=== PATIENT | female | born 1980 | race African-American/Black ===

== ENCOUNTER 2019-12-08 17:53 | Emergency (ER) | payer OTHER ==
[~2019-12-08] VITALS: Ht 157.5 cm; Wt 104.5 kg
--- NOTE | 2019-12-08 18:56 | PHYS DOC ---
Adult General Chief Complaint Chief Complaint: SKIN RASH/ABSCESS HPI HPI Patient is a 39 year old female who presents with a November 28 patient had the first half of a dental procedure for deep scaling at [facility], [place] by Dr Pepe. I that time and started her on amoxicillin and Flagyl. Patient states that the second half of the deep scaling was done on December 03. She states she has been on amoxicillin and Flagyl this whole time and she actually has 3 doses left. Her last dose she took at 1530 today. She states that she woke up this morning and she had hives from head to toe is very itchy. She states that she took 2 Benadryl at 11:30 and she seemed to be getting better. She states she then took her medicine again at 1530 which was the amoxicillin and the Flagyl. She states then a raft up again and she ended up taking 25 mg of Benadryl at 1630. Patient states she is also been trying hydrocortisone cream and Benadryl creams. She denies any hives in her mouth, tongue swelling, lip swelling, itching of her throat or in her mouth. She denies any shortness of breath or chest pain or nausea or vomiting. She denies any dizziness or headache or numbness and tingling. Review of Systems Review of Systems Integument: Denies rash or skin lesions. Hives. [] All other systems were reviewed and found to be within normal limits, except as documented in this note. Current Medications Current Medications Current Medications Medications (Trade) Dose Ordered Sig/Joel Start Time Stop Time Status Last Admin Dose Admin Diphenhydramine HCl (Benadryl) 25 mg 1X ONCE 12/08/19 19:00 12/08/19 19:09 DC 12/08/19 19:05 25 MG Famotidine (Pepcid Vial) 20 mg 1X ONCE 12/08/19 19:00 12/08/19 19:09 DC 12/08/19 19:05 20 MG Methylprednisolone Sodium Succinate (SOLU-Medrol 125MG VIAL) 125 mg 1X ONCE 12/08/19 19:00 12/08/19 19:09 DC 12/08/19 19:05 125 MG Sodium Chloride 1,000 ml @ 1,000 mls/hr 1X ONCE 12/08/19 19:00 12/08/19 19:59 12/08/19 19:06 1,000 MLS/HR Allergies Allergies Allergies Coded Allergies Type Severity Reaction Last Updated Verified No Known Drug Allergies 12/08/19 No Physical Exam Physical Exam Constitutional: Well developed, well nourished, no acute distress, non-toxic appearance. [] HENT: Normocephalic, atraumatic, bilateral external ears normal, oropharynx moist, no oral exudates, nose normal. [] Eyes: PERRLA, EOMI, conjunctiva normal, no discharge. [] Neck: Normal range of motion, no tenderness, supple, no stridor. [] Cardiovascular:Heart rate regular rhythm, no murmur [] Lungs & Thorax: Bilateral breath sounds clear to auscultation [] Abdomen: Bowel sounds normal, soft, no tenderness, no masses, no pulsatile masses. [] Skin: Warm, dry, no erythema, no rash. Hives. [] Back: No tenderness, no CVA tenderness. [] Extremities: No tenderness, no cyanosis, no clubbing, ROM intact, no edema. [] Neurologic: Alert and oriented X 3, normal motor function, normal sensory function, no focal deficits noted. [] Psychologic: Affect normal, judgement normal, mood normal. [] Current Patient Data Vital Signs Vital Signs Date Time Temp Pulse Resp B/P (MAP) Pulse Ox O2 Delivery O2 Flow Rate FiO2 12/08/19 19:41 92 117/64 (81) 100 Room Air 12/08/19 18:44 98.1 18 98.1 EKG EKG [] Radiology/Procedures Radiology/Procedures [] Course & Med Decision Making Course & Med Decision Making Pertinent Labs and Imaging studies reviewed. (See chart for details) Alert and oriented. Speaks in full clear sentences. There are no hives or swelling to the patient's lips or mouth. No swelling to the tongue. No swelling to the uvula and no hives in the mouth or swelling. She does have some hives on her face that are very small. Her eyes are not swollen. Patient has hives all over generalized body. Lungs are clear to auscultation was. Vital signs are within normal limits. Ambulatory with a steady gait. Patient is given IV Solu-Medrol, 25 mg IV Benadryl, 20 mg Pepcid and NS bolus. Hives have gone down and patient states she is feeling much better. Patient will be sent home on Medrol Dosepak, Benadryl and Pepcid. [] Dragon Disclaimer Dragon Disclaimer This electronic medical record was generated, in whole or in part, using a voice recognition dictation system. Departure Departure Impression: Primary Impression: Allergic reaction Disposition: HOME, SELF-CARE Condition: STABLE Patient Instructions: Hives Additional Instructions: Stop taking amoxicillin and Flagyl. Call the dentist in the morning and let them know that he had an allergic reaction. They may want to switch antibiotics. Continue taking the medication as prescribed. Drink plenty of fluids. Come back if he began having facial swelling or shortness of breath. Scripts Epinephrine (EPIPEN 2-FABY) 0.3 Mg/0.3 Ml Auto.injct 1 SYR IM ONCE for ANAPHYLAXIS for 1 Day, #1 PACKET 0 Refills Prov: ANNE RODRIGUES APRN 12/08/19 Diphenhydramine Hcl (BENADRYL) 25 Mg Capsule 25 MG PO TID, #15 CAP Prov: ANNE RODRIGUES APRN 12/08/19 Famotidine (PEPCID) 20 Mg Tablet 20 MG PO BID, #30 TAB Prov: ANNE RODRIGUES APRN 12/08/19 Methylprednisolone (MEDROL) 4 Mg Tab.ds.pk 1 PKG PO UD, #1 PKG Prov: ANNE RODRIGUES APRN 12/08/19 Problem Qualifiers Primary Impression: Allergic reaction Encounter type: initial encounter Qualified Codes: T78.40XA - Allergy, unspecified, initial encounter ANNE RODRIGUES APRN Dec 08, 2019 18:56
[2019-12-08] MEDS ORDERED: diphenhydrAMINE 50 MG/ML VIAL IVP ONE (19:00)
[2019-12-08] MEDS ORDERED: methylPREDNISolone SOD SUCC PF 125 MG/2 ML VIAL. IV ONE (19:00)
[2019-12-08] MEDS ORDERED: FAMOTIDINE 20 MG/2 ML VIAL IVP ONE (19:00)
[2019-12-08] MEDS ORDERED: IV NORMAL SALINE 1000ML BAG 1,000 ML IV ONE (19:00)
[2019-12-08 19:41] VITALS: BP 117/64
[2019-12-08] MEDS ORDERED: METH4TAB2 PO (20:02)
[2019-12-08] MEDS ORDERED: FAMO-63 PO (20:02)
[2019-12-08] MEDS ORDERED: DIPH25CA58 PO (20:02)
[2019-12-08] MEDS ORDERED: EPIPEN 2-P0.3 MG/0.3 IM (20:04)
[2019-12-09] MEDS ORDERED: VALA10008 PO (04:21)
[2019-12-09] MEDS ORDERED: ESTR1TAB15 PO (04:21)
[2019-12-09] MEDS ORDERED: DAPA10TA PO (04:21)
[2019-12-09] MEDS ORDERED: METF750T39 PO (04:21)
== END 2019-12-08 20:11 | disposition home or self-care (01) ==
LOC: ER 17:53
DX: L50.0 Allergic urticaria (principal)
CPT/HCPCS: 96374; 96375; 99284; J1200; J2930; J3490; J7030

== ENCOUNTER 2019-12-09 00:42 | Inpatient (IN) | payer OTHER ==
[~2019-12-09] VITALS: Ht 160 cm; Wt 122.6 kg
[~2019-12-09 00:42] MED LIST: DIPH25CA58 PO; EPIPEN 2-P0.3 MG/0.3 IM; FAMO-63 PO; METH4TAB2 PO
[2019-12-09] MEDS ORDERED: methylPREDNISolone SOD SUCC PF 125 MG/2 ML VIAL. ONE (00:56)
[2019-12-09] MEDS ORDERED: methylPREDNISolone SOD SUCC PF 125 MG/2 ML VIAL. IV ONE ×2 (01:00→09:30)
[2019-12-09] MEDS ORDERED: IV NORMAL SALINE 1000ML BAG 1,000 ML IV SCH (01:00)
[2019-12-09] MEDS ORDERED: FAMOTIDINE 20 MG/2 ML VIAL IVP ONE (01:00)
[2019-12-09] MEDS ORDERED: diphenhydrAMINE 50 MG/ML VIAL IV ONE (01:00)
[2019-12-09 01:11] LABS: BASO % 0 % (0-3); EOS % 0 % (0-3); HEMATOCRIT 45.5 % (36.0-47.0); HEMOGLOBIN 15.4 g/dL (12.0-15.5); LYMPH # 1.3 x10^3/uL (1.0-4.8); LYMPH % 10 % (24-48); MEAN CORPUSCULAR HEMOGLOBIN 28 pg (25-35); MEAN CORPUSCULAR HGB CONC 34 g/dL (31-37); MEAN CORPUSCULAR VOLUME 84 fL (79-100); MONO # 0.1 x10^3/uL (0.0-1.1); MONO % 1 % (0-9); NEUT # 11.5 x10^3/uL (1.8-7.7); NEUT % 89 % (31-73); PLATELET COUNT 203 x10^3/uL (140-400); RED BLOOD COUNT 5.43 x10^6/uL (3.50-5.40); RED CELL DISTRIBUTION WIDTH 13.8 % (11.5-14.5); WHITE BLOOD COUNT 12.9 x10^3/uL (4.0-11.0)
[2019-12-09 01:25] LABS: ALBUMIN 3.4 g/dL (3.4-5.0); ALBUMIN/GLOBULIN RATIO 0.8 (1.0-1.7); CALCIUM 8.9 mg/dL (8.5-10.1); CREATININE 1.2 mg/dL (0.6-1.0); GFR 60.2; POTASSIUM 4.6 mmol/L (3.5-5.1); TOTAL BILIRUBIN 0.4 mg/dL (0.2-1.0); TOTAL PROTEIN 7.7 g/dL (6.4-8.2)
--- NOTE | 2019-12-09 01:40 | PHYS DOC ---
Past Medical History Past Medical History: Diabetes-Type II Past Surgical History: Hysterectomy Smoking Status: Never Smoker Alcohol Use: None Adult General Chief Complaint Chief Complaint: ALLERGIC REACTION HPI HPI Patient is a 39 year old female with history of diabetes mellitus who presents with complaining of face and trunk swelling. Patient states she had 2 episodes of dental scaling in November 28 and December 03 with 10 days of amoxicillin with the last one was taking yesterday afternoon. Patient was seen in this emergency room few hours ago with pruritic rash without facial edema or shortness of breath and felt better after treatment in ER. Patient complaining of restarting the rash with facial edema and tongue throat swelling without shortness of breath that did not get better with taking [id number] Benadryl. Patient denied chest pain, fever and chills, nausea vomiting, urinary symptoms, , history of the same problem previously. Review of Systems Review of Systems Constitutional: Denies fever or chills [] Eyes: Denies change in visual acuity, redness, or eye pain [] HENT: Denies nasal congestion or sore throat [] Respiratory: Denies cough or shortness of breath [] Cardiovascular: No additional information not addressed in HPI [] GI: Denies abdominal pain, nausea, vomiting, bloody stools or diarrhea [] : Denies dysuria or hematuria [] Musculoskeletal: Denies back pain or joint pain [] Integument: Reports rash Neurologic: Denies headache, focal weakness or sensory changes [] Endocrine: Denies polyuria or polydipsia [] All other systems were reviewed and found to be within normal limits, except as documented in this note. Current Medications Current Medications Current Medications Medications (Trade) Dose Ordered Sig/Joel Start Time Stop Time Status Last Admin Dose Admin Diphenhydramine HCl (Benadryl) 25 mg 1X ONCE 12/09/19 01:00 12/09/19 01:02 DC 12/09/19 00:59 25 MG Famotidine (Pepcid Vial) 20 mg 1X ONCE 12/09/19 01:00 12/09/19 01:02 DC 12/09/19 01:00 20 MG Methylprednisolone Sodium Succinate (SOLU-Medrol 125MG VIAL) 125 mg STK-MED ONCE 12/09/19 00:56 12/09/19 00:56 DC Sodium Chloride 1,000 ml @ 1,000 mls/hr Q1H 12/09/19 01:00 12/09/19 01:59 12/09/19 01:00 1,000 MLS/HR Allergies Allergies Allergies Coded Allergies Type Severity Reaction Last Updated Verified No Known Drug Allergies 12/08/19 No Physical Exam Physical Exam Constitutional: Well developed, well nourished, mild distress, non-toxic appearance. [] HENT: Normocephalic, atraumatic, facial rash and edema, bilateral external ears normal, oropharynx moist, mild erythema of the tongue without uvula edema,no oral exudates, nose normal. [] Eyes: PERRLA, EOMI, conjunctiva normal, no discharge. [] Neck: Normal range of motion, no tenderness, supple, no stridor. [] Cardiovascular:Heart rate regular rhythm, no murmur [] Lungs & Thorax: Bilateral breath sounds clear to auscultation [] Abdomen: Bowel sounds normal, soft, no tenderness, no masses, no pulsatile masses. [] Skin: Warm, dry, hives in face and neck and upper chest and back Back: No tenderness, no CVA tenderness. [] Extremities: No tenderness, no cyanosis, no clubbing, ROM intact, no edema. [] Neurologic: Alert and oriented X 3, normal motor function, normal sensory function, no focal deficits noted. [] Psychologic: Affect normal, judgement normal, mood normal. [] EKG EKG [] Radiology/Procedures Radiology/Procedures [] Course & Med Decision Making Course & Med Decision Making Pertinent Labs reviewed. (See chart for details) Evaluation of patient in ER showed 39-year-old male patient who presented for the second time to ER for allergic rash. Patient this time has facial edema and tongue swelling without shortness of breath. Patient had a stable vital signs. Labs showed blood sugar of more than 500 and IV insulin was given. Plan to admit patient for observation and treatment of allergic rash. Patient requiring admission for further evaluation and treatment. Discussed with Dr. Jairon jett is in agreement with admission. Discussed findings and plan with patient and family, who acknowledge understanding and agreement. Dragon Disclaimer Dragon Disclaimer This electronic medical record was generated, in whole or in part, using a voice recognition dictation system. Departure Departure Impression: Primary Impression: Allergic reaction Additional Impression: Hyperglycemia Disposition: ADMITTED INPATIENT (Admitted 0100) Admitting Physician: MEGConnie (Dr. De La O accepted admission) Condition: IMPROVED Referrals: AMANDA MORRISON MD (PCP) Problem Qualifiers Primary Impression: Allergic reaction Encounter type: initial encounter Qualified Codes: T78.40XA - Allergy, unspecified, initial encounter WYATT VASQUEZ MD Dec 09, 2019 01:40
[2019-12-09 01:54] LABS: % LYMPHS 10 % (24-48); % SEGS 90 % (35-66); PLT ESTIMATE ADEQUATE (ADEQUATE)
[2019-12-09 01:55] LABS: BASE EXCESS ABG -6 mmol/L (-3-3); HCO3 ABG 17 mmol/L (21-28); PCO2 ABG 27 mmHg (35-46); PO2 ABG 88 mmHg (75-108); SAT O2 ABG 96 % (92-99)
[2019-12-09] MEDS ORDERED: diphenhydrAMINE 50 MG/ML VIAL IVP PRN (02:00)
[2019-12-09] MEDS ORDERED: INSULIN REGULAR 100 UNIT/ML 3ML VIAL. IV ONE (02:00)
[2019-12-09] MEDS ORDERED: DEXTROSE 50% 25 GM / 50ML DISP.SYRIN. IV PRN ×3 (02:00→22:15)
[2019-12-09 02:07] LABS: FIO2 ABG 21
[2019-12-09] MEDS: IV NORMAL SALINE 1000ML BAG 1,000 ML IV SCH ×2 (02:22→12:55)
[2019-12-09 03:30] VITALS: BP 143/81
[2019-12-09] MEDS ORDERED: ESTR1TAB15 PO (04:21)
[2019-12-09] MEDS ORDERED: DAPA10TA PO (04:21)
[2019-12-09] MEDS ORDERED: VALA10008 PO (04:21)
[2019-12-09] MEDS ORDERED: METF750T39 PO (04:21)
[2019-12-09 07:00] VITALS: BP 137/82
[2019-12-09] MEDS ORDERED: EPINEPHRINE IM SCH (08:45)
[2019-12-09] MEDS ORDERED: diphenhydrAMINE 50 MG/ML VIAL IVP ONE ×2 (08:45→15:00)
[2019-12-09] MEDS ORDERED: NON FORMULARY ITEM (Dapagliflozin Propanediol (Farxiga) 10 MG) PO SCH (09:00)
[2019-12-09] MEDS ORDERED: FLU VAX QS 2019-20 (36MOS+)/PF 0.5 ML SYRINGE. VAX IM ONE (09:00)
[2019-12-09] MEDS ORDERED: DIPHENHYDRAMINE/ZINC ACETATE 2%/0.1% TOPICAL CREAM 28GM TUBE. TP PRN (09:15)
[2019-12-09] MEDS: FAMOTIDINE 20 MG TABLET. PO SCH ×2 (09:19→21:14)
--- NOTE | 2019-12-09 09:21 | PDOC1 ---
History and Physical Date of Admission Date of Admission DATE: 12/09/19 TIME: 09:17 Identification/Chief Complaint Chief Complaint rash, swelling Source Source: Chart review, Patient History of Present Illness History of Present Illness Rosalind was in the ER x2 yesterday, a 39 year old female complaining of face and trunk swelling. had recent periodonal proceedure, dental scaling, then 10 days of amoxicillin and flagyl. with the last one was taking yesterday afternoon. Patient was seen in this emergency room twice, first DC with rash, then returned when rash and swelling worsened wtih face and tongue swelling. She has no shortness of breath and felt better after treatment in ER. she has been itching her legs markedly, Patient denied chest pain, fever and chills, nausea vomiting, urinary symptoms, , history of the same problem previously. Past Medical History Cardiovascular: No pertinent hx Pulmonary: No pertinent hx GI: No pertinent hx Heme/Onc: Anemia NOS Endocrine: Diabetes Dermatology: No pertinent hx Family History Family History: Diabetes, Hypertension Social History Smoke: No ALCOHOL: rare Current Problem List Problem List Problems Medical Problems: (1) Allergic reaction Status: Acute (2) Hyperglycemia Status: Acute Current Medications Current Medications Current Medications Methylprednisolone Sodium Succinate (SOLU-Medrol 125MG VIAL) 125 mg 1X ONCE IV Last administered on 12/09/19at 00:59; Start 12/09/19 at 01:00; Stop 12/09/19 at 01:02; Status DC Diphenhydramine HCl (Benadryl) 25 mg 1X ONCE IV Last administered on 12/09/19at 00:59; Start 12/09/19 at 01:00; Stop 12/09/19 at 01:02; Status DC Famotidine (Pepcid Vial) 20 mg 1X ONCE IVP Last administered on 12/09/19at 01 :00; Start 12/09/19 at 01:00; Stop 12/09/19 at 01:02; Status DC Sodium Chloride 1,000 ml @ 1,000 mls/hr Q1H IV Last administered on 12/09/19at 01:00; Start 12/09/19 at 01:00; Stop 12/09/19 at 01:59; Status DC Methylprednisolone Sodium Succinate (SOLU-Medrol 125MG VIAL) 125 mg STK-MED ONCE .ROUTE ; Start 12/09/19 at 00:56; Stop 12/09/19 at 00:56; Status DC Insulin Human Regular (HumuLIN R VIAL) 10 unit 1X ONCE IV Last administered on 12/09/19at 02:06; Start 12/09/19 at 02:00; Stop 12/09/19 at 02:01; Status DC Sodium Chloride 1,000 ml @ 100 mls/hr Q10H IV Last administered on 12/09/19at 02:22; Start 12/09/19 at 02:00; Stop 12/10/19 at 01:59 Diphenhydramine HCl (Benadryl) 25 mg PRN Q6HRS PRN IVP ITCHING; Start 12/09/19 at 02:00; Stop 12/09/19 at 06:00; Status DC Dextrose (Dextrose 50%-Water Syringe) 12.5 gm PRN Q15MIN PRN IV SEE COMMENTS; Start 12/09/19 at 02:00 Influenza Virus Vaccine Quadrival (Afluria Quad 2019-20 (3yr Up) Syringe) 0.5 ml ONCE ONCE VAX IM ; Start 12/09/19 at 09:00; Stop 12/09/19 at 09:01; Status DC Diphenhydramine HCl (Benadryl) 50 mg PRN Q6HRS PRN PO ITCHING; Start 12/09/19 at 08:45 Diphenhydramine HCl (Benadryl) 50 mg 1X ONCE IVP ; Start 12/09/19 at 08:45; Stop 12/09/19 at 08:46; Status DC Diphenhydramine HCl (Benadryl) 25 mg TID PO ; Start 12/09/19 at 14:00 Estradiol (Estrace) 1 mg DAILY PO ; Start 12/09/19 at 10:00 Famotidine (Pepcid) 20 mg BID PO ; Start 12/09/19 at 09:00 Non-Formulary Medication (Dapagliflozin Propanediol (Farxiga)) 10 mg DAILY PO ; Start 12/09/19 at 09:00; Status UNV Non-Formulary Medication (Epinephrine (Epipen 2-[place])) 1 syr ONCE IM ; Start 12/09/19 at 08:45; Status UNV Valacyclovir HCl (Valtrex) 1,000 mg DAILY PO ; Start 12/09/19 at 10:00 Insulin Human Lispro (HumaLOG) 0-9 UNITS TIDWMEALS SQ ; Start 12/09/19 at 12:00 Dextrose (Dextrose 50%-Water Syringe) 12.5 gm PRN Q15MIN PRN IV SEE COMMENTS; Start 12/09/19 at 08:45; Status UNV Insulin Glargine (Lantus Syringe) 25 unit DAILY08 SQ ; Start 12/09/19 at 10:00 Active Scripts Active Epipen 2-[place] (Epinephrine) 0.3 Mg/0.3 Ml Auto.injct 1 Syr IM ONCE 1 Days Benadryl (Diphenhydramine Hcl) 25 Mg Capsule 25 Mg PO TID Pepcid (Famotidine) 20 Mg Tablet 20 Mg PO BID Medrol (Methylprednisolone) 4 Mg Tab.ds.pk 1 Pkg PO UD Reported Estradiol 1 Mg Tablet 1 Tab PO DAILY Valacyclovir (Valacyclovir Hcl) 1,000 Mg Tablet 1 Tab PO DAILY Metformin Hcl Er (Metformin Hcl) 750 Mg Tab.er.24h 1 Tab PO BIDWMEALS PRN 30 Days Farxiga (Dapagliflozin Propanediol) 10 Mg Tablet 10 Mg PO DAILY Allergies Allergies: Coded Allergies: amoxicillin (Verified Allergy, Severe, rash/hives/facial edema, 12/09/19) metronidazole (Verified Allergy, Severe, rash/hives/facial edema, 12/09/19) ROS General: YES: Fatigue; No: Chills, Night Sweats, Malaise, Appetite, Other PSYCHOLOGICAL ROS: No: Anxiety, Behavioral Disorder, Concentration difficultie, Decreased libido, Depression, Disorientation, Hallucinations, Hostility, Irritablity, Memory difficulties, Mood Swings, Obsessive thoughts, Physical abuse, Sexual abuse, Sleep disturbances, Suicidal ideation, Other Eyes: No Blurry vision, No Decreased vision, No Double vision, No Dry eyes, No Excessive tearing, No Eye Pain, No Itchy Eyes, No Loss of vision, No Photophobia, No Scotomata, No Uses contacts, No Uses glasses, No Other HEENT: YES: Other; No: Heacaches, Visual Changes, Hearing change, Nasal congestion, Nasal discharge, Oral lesions, Sinus pain, Sore Throat, Epistaxis, Sneezing, Snoring, Tinnitus, Vertigo, Vocal changes ALLERGY AND IMMUNOLOGY: YES: Hives, Other Hematological and Lymphatic: No: Bleeding Problems, Blood Clots, Blood Transfusions, Brusing, Night Sweats, Pallor, Swollen Lymph Nodes, Other ENDOCRINE: No: Breast Changes, Galactorrhea, Hair Pattern Changes, Hot Flashes, Malaise/lethargy, Mood Swings, Palpitations, Polydipsia/polyuria, Skin Changes, Temperature Intolerance, Unexpected Weight Changes, Other Respiratory: No: Cough, Hemoptysis, Orthopnea, Pleuritic Pain, Shortness of breath, SOB with excertion, Sputum Changes, Stridor, Tachypnea, Wheezing, Other Cardiovascular: yes Chest Pain; No Palpitations, No Orthopnea, No Paroxysmal Noc. Dyspnea, No Edema, No Lt Headedness, No Other Gastrointestinal: Yes Nausea Genitourinary: No Dysuria, No Frequency, No Incontinence, No Hematuria, No Retention, No Discharge, No Urgency, No Pain, No Flank Pain, No Other, No , No , No , No , No , No , No Musculoskeletal: No Gait Disturbance, No Joint Pain, No Joint Stiffness, No Joint Swelling, No Muscle Pain, No Muscular Weakness, No Pain In:, No Swelling In:, No Other Neurological: No Behavorial Changes, No Bowel/Bladder ControlChng, No Confusion, No Dizziness, No Gait Disturbance, No Headaches, No Impaired Coord/balance, No Memory Loss, No Numbness/Tingling, No Seizures, No Speech Problems, No Tremors, No Visual Changes, No Weakness, No Other Skin: Yes Dry Skin, Yes Rash, Yes Skin Lesion Changes, Yes Other; No Eczema, No Hair Changes, No Lumps, No Mole Changes, No Mottling, No Nail Changes, No Pruritus, No Acne Physical Exam General: Alert, Oriented X3, mild distress HEENT: Atraumatic, Mucous membr. moist/pink Lungs: Clear to auscultation, Normal air movement Heart: RRR, no murmurs Abdomen: Normal bowel sounds, Soft Extremities: No clubbing Skin: No rashes Neuro: Normal gait Vitals Vitals Vital Signs Date Time Temp Pulse Resp B/P (MAP) Pulse Ox O2 Delivery O2 Flow Rate FiO2 12/09/19 07:00 98.3 120 20 137/82 (100) 98 Nasal Cannula 98.3 Labs Labs Laboratory Tests Test 12/09/19 01:05 12/09/19 01:56 12/09/19 08:13 White Blood Count 12.9 x10^3/uL (4.0-11.0) Red Blood Count 5.43 x10^6/uL (3.50-5.40) Hemoglobin 15.4 g/dL (12.0-15.5) Hematocrit 45.5 % (36.0-47.0) Mean Corpuscular Volume 84 fL (79-100) Mean Corpuscular Hemoglobin 28 pg (25-35) Mean Corpuscular Hemoglobin Concent 34 g/dL (31-37) Red Cell Distribution Width 13.8 % (11.5-14.5) Platelet Count 203 x10^3/uL (140-400) Neutrophils (%) (Auto) 89 % (31-73) Lymphocytes (%) (Auto) 10 % (24-48) Monocytes (%) (Auto) 1 % (0-9) Eosinophils (%) (Auto) 0 % (0-3) Basophils (%) (Auto) 0 % (0-3) Neutrophils # (Auto) 11.5 x10^3/uL (1.8-7.7) Lymphocytes # (Auto) 1.3 x10^3/uL (1.0-4.8) Monocytes # (Auto) 0.1 x10^3/uL (0.0-1.1) Eosinophils # (Auto) 0.0 x10^3/uL (0.0-0.7) Basophils # (Auto) 0.0 x10^3/uL (0.0-0.2) Segmented Neutrophils % 90 % (35-66) Lymphocytes % 10 % (24-48) Platelet Estimate Adequate (ADEQUATE) Sodium Level 129 mmol/L (136-145) Potassium Level 4.6 mmol/L (3.5-5.1) Chloride Level 97 mmol/L (98-107) Carbon Dioxide Level 18 mmol/L (21-32) Anion Gap 14 (6-14) Blood Urea Nitrogen 12 mg/dL (7-20) Creatinine 1.2 mg/dL (0.6-1.0) Estimated GFR (Cockcroft-Gault) 60.2 BUN/Creatinine Ratio 10 (6-20) Glucose Level 522 mg/dL (70-99) Calcium Level 8.9 mg/dL (8.5-10.1) Total Bilirubin 0.4 mg/dL (0.2-1.0) Aspartate Amino Transf (AST/SGOT) 10 U/L (15-37) Alanine Aminotransferase (ALT/SGPT) 16 U/L (14-59) Alkaline Phosphatase 105 U/L (46-116) Total Protein 7.7 g/dL (6.4-8.2) Albumin 3.4 g/dL (3.4-5.0) Albumin/Globulin Ratio 0.8 (1.0-1.7) O2 Saturation 96 % (92-99) Arterial Blood pH 7.41 (7.35-7.45) Arterial Blood pCO2 at Patient Temp 27 mmHg (35-46) Arterial Blood pO2 at Patient Temp 88 mmHg (75-108) Arterial Blood HCO3 17 mmol/L (21-28) Arterial Blood Base Excess -6 mmol/L (-3-3) FiO2 21 Glucose (Fingerstick) 389 mg/dL (70-99) Laboratory Tests Test 12/09/19 01:05 12/09/19 01:56 12/09/19 08:13 White Blood Count 12.9 x10^3/uL (4.0-11.0) Red Blood Count 5.43 x10^6/uL (3.50-5.40) Hemoglobin 15.4 g/dL (12.0-15.5) Hematocrit 45.5 % (36.0-47.0) Mean Corpuscular Volume 84 fL (79-100) Mean Corpuscular Hemoglobin 28 pg (25-35) Mean Corpuscular Hemoglobin Concent 34 g/dL (31-37) Red Cell Distribution Width 13.8 % (11.5-14.5) Platelet Count 203 x10^3/uL (140-400) Neutrophils (%) (Auto) 89 % (31-73) Lymphocytes (%) (Auto) 10 % (24-48) Monocytes (%) (Auto) 1 % (0-9) Eosinophils (%) (Auto) 0 % (0-3) Basophils (%) (Auto) 0 % (0-3) Neutrophils # (Auto) 11.5 x10^3/uL (1.8-7.7) Lymphocytes # (Auto) 1.3 x10^3/uL (1.0-4.8) Monocytes # (Auto) 0.1 x10^3/uL (0.0-1.1) Eosinophils # (Auto) 0.0 x10^3/uL (0.0-0.7) Basophils # (Auto) 0.0 x10^3/uL (0.0-0.2) Segmented Neutrophils % 90 % (35-66) Lymphocytes % 10 % (24-48) Platelet Estimate Adequate (ADEQUATE) Sodium Level 129 mmol/L (136-145) Potassium Level 4.6 mmol/L (3.5-5.1) Chloride Level 97 mmol/L (98-107) Carbon Dioxide Level 18 mmol/L (21-32) Anion Gap 14 (6-14) Blood Urea Nitrogen 12 mg/dL (7-20) Creatinine 1.2 mg/dL (0.6-1.0) Estimated GFR (Cockcroft-Gault) 60.2 BUN/Creatinine Ratio 10 (6-20) Glucose Level 522 mg/dL (70-99) Calcium Level 8.9 mg/dL (8.5-10.1) Total Bilirubin 0.4 mg/dL (0.2-1.0) Aspartate Amino Transf (AST/SGOT) 10 U/L (15-37) Alanine Aminotransferase (ALT/SGPT) 16 U/L (14-59) Alkaline Phosphatase 105 U/L (46-116) Total Protein 7.7 g/dL (6.4-8.2) Albumin 3.4 g/dL (3.4-5.0) Albumin/Globulin Ratio 0.8 (1.0-1.7) O2 Saturation 96 % (92-99) Arterial Blood pH 7.41 (7.35-7.45) Arterial Blood pCO2 at Patient Temp 27 mmHg (35-46) Arterial Blood pO2 at Patient Temp 88 mmHg (75-108) Arterial Blood HCO3 17 mmol/L (21-28) Arterial Blood Base Excess -6 mmol/L (-3-3) FiO2 21 Glucose (Fingerstick) 389 mg/dL (70-99) VTE Prophylaxis Ordered VTE Prophylaxis Devices: No VTE Pharmacological Prophylaxi: Yes Assessment/Plan Assessment/Plan anaphalactic reaction, admit to tele SIRS from reaction obese, BMI 47 Dm2, blood sugar marked spike from allergy treatemtn admit LIEN FLOYD MD Dec 09, 2019 09:21
[2019-12-09] MEDS: diphenhydrAMINE HCL 25 MG CAPSULE PO PRN (09:24)
[2019-12-09] MEDS: valACYclovir 500 MG TABLET. PO SCH (09:33)
[2019-12-09] MEDS: INSULIN GLARGINE SYRINGE. SQ SCH (09:38)
[2019-12-09 11:00] VITALS: BP 128/77
[2019-12-09] MEDS: ESTRADIOL 1 MG TABLET. PO SCH (11:44)
--- NOTE | 2019-12-09 11:56 | NUR ---
SS following for discharge planning. SS reviewed pt chart. Pt is from home and is currently on room air. SS will continue to follow for discharge planning.
[2019-12-09] MEDS: INSULIN LISPRO 300 UNITS/3 ML VIAL. SQ SCH ×2 (13:03→22:57)
[2019-12-09] MEDS: diphenhydrAMINE HCL 25 MG CAPSULE PO SCH ×2 (13:44→21:14)
[2019-12-09 15:00] VITALS: BP 136/81
[2019-12-09] MEDS ORDERED: INSULIN GLARGINE SYRINGE. SQ ONE (18:00)
--- NOTE | 2019-12-09 19:34 | NUR ---
FACULTY CO-SIGN I have reviewed the documentation by licensed nursing assistant: [employer] student.
[2019-12-09 19:50] VITALS: BP 140/79
--- NOTE | 2019-12-09 21:24 | NUR ---
Patient is tearful, stated she "is itching and the PO Benedryl is not helping" her. BP 140/79 P107, R 20, Also Blood Sugar is 376. Patient does have hives/ rash appearance on face, arms, hands & torso. RN paged Dr Rivas neon pumper for [facility]
[2019-12-09] MEDS: diphenhydrAMINE 50 MG/ML VIAL IVP PRN (22:48)
[2019-12-09 23:10] VITALS: BP 135/73
[2019-12-10 02:30] VITALS: BP 137/76
[2019-12-10] MEDS: IV NORMAL SALINE 1000ML BAG 1,000 ML IV SCH (05:18)
[2019-12-10] MEDS: diphenhydrAMINE HCL 25 MG CAPSULE PO PRN (05:30)
[2019-12-10] MEDS ORDERED: predniSONE 10 MG TABLET PO ONE (05:30)
[2019-12-10 07:00] VITALS: BP 96/52
[2019-12-10] MEDS ORDERED: INSULIN LISPRO 300 UNITS/3 ML VIAL. SQ SCH (08:00)
[2019-12-10] MEDS: diphenhydrAMINE HCL 25 MG CAPSULE PO SCH ×2 (09:00→14:39)
[2019-12-10] MEDS: diphenhydrAMINE 50 MG/ML VIAL IVP PRN (09:12)
[2019-12-10] MEDS: valACYclovir 500 MG TABLET. PO SCH (09:12)
[2019-12-10] MEDS: ESTRADIOL 1 MG TABLET. PO SCH (09:13)
[2019-12-10] MEDS: FAMOTIDINE 20 MG TABLET. PO SCH (09:13)
[2019-12-10] MEDS ORDERED: ONDANSETRON PF 4 MG/2 ML VIAL. IVP PRN (09:15)
[2019-12-10] MEDS: INSULIN LISPRO 300 UNITS/3 ML VIAL. SQ SCH ×2 (09:22→12:28)
[2019-12-10] MEDS: INSULIN GLARGINE SYRINGE. SQ SCH (09:23)
--- NOTE | 2019-12-10 09:56 | PDOC ---
Infectious Disease Note Vital Sign Vital Signs Vital Signs Date Time Temp Pulse Resp B/P (MAP) Pulse Ox O2 Delivery O2 Flow Rate FiO2 12/10/19 07:00 98.0 107 18 96/52 (67) 96 Room Air 98.0 Labs Lab Laboratory Tests Test 12/09/19 12:19 12/09/19 17:18 12/09/19 21:11 12/10/19 08:19 Glucose (Fingerstick) 326 mg/dL (70-99) 394 mg/dL (70-99) 376 mg/dL (70-99) 297 mg/dL (70-99) Objective Assessment pt seen, consult dictated Plan Plan of Care / LINDSAY SLAUGHTER MD Dec 10, 2019 09:56
[2019-12-10 10:05] LABS: BASO % 0 % (0-3); EOS % 0 % (0-3); HEMATOCRIT 43.2 % (36.0-47.0); HEMOGLOBIN 14.7 g/dL (12.0-15.5); LYMPH # 1.1 x10^3/uL (1.0-4.8); LYMPH % 8 % (24-48); MEAN CORPUSCULAR HEMOGLOBIN 29 pg (25-35); MEAN CORPUSCULAR HGB CONC 34 g/dL (31-37); MEAN CORPUSCULAR VOLUME 84 fL (79-100); MONO # 0.3 x10^3/uL (0.0-1.1); MONO % 2 % (0-9); NEUT % 89 % (31-73); PLATELET COUNT 197 x10^3/uL (140-400); RED BLOOD COUNT 5.15 x10^6/uL (3.50-5.40); RED CELL DISTRIBUTION WIDTH 13.8 % (11.5-14.5); WHITE BLOOD COUNT 13.4 x10^3/uL (4.0-11.0)
[2019-12-10 10:27] LABS: ALBUMIN 2.9 g/dL (3.4-5.0); C-REACTIVE PROTEIN 19.2 mg/L (0-3.3); CALCIUM 7.5 mg/dL (8.5-10.1); CREATININE 0.7 mg/dL (0.6-1.0); GFR 112.1; TOTAL BILIRUBIN 0.8 mg/dL (0.2-1.0); TOTAL PROTEIN 5.9 g/dL (6.4-8.2)
[2019-12-10 11:00] VITALS: BP 121/61
--- NOTE | 2019-12-10 12:40 | PDOC3 ---
Discharge Summary Visit Information Date of Admission: Dec 09, 2019 Date of Discharge: Dec 10, 2019 Final Diagnosis anaphalactic reaction, admitted to tele SIRS from reaction obese, BMI 47 Dm2, blood sugar marked spike from allergy treatemtn Problems Medical Problems: (1) Allergic reaction Status: Acute (2) Hyperglycemia Status: Acute Brief Hospital Course Allergies Allergies Coded Allergies Type Severity Reaction Last Updated Verified amoxicillin Allergy Severe rash/hives/facial edema 12/09/19 Yes metronidazole Allergy Severe rash/hives/facial edema 12/09/19 Yes Vital Signs Vital Signs Date Time Temp Pulse Resp B/P (MAP) Pulse Ox O2 Delivery O2 Flow Rate FiO2 12/10/19 07:00 98.0 107 18 96/52 (67) 96 Room Air 98.0 Lab Results Laboratory Tests Test 12/09/19 01:05 12/09/19 01:56 12/09/19 08:13 12/09/19 12:19 White Blood Count 12.9 x10^3/uL (4.0-11.0) Red Blood Count 5.43 x10^6/uL (3.50-5.40) Hemoglobin 15.4 g/dL (12.0-15.5) Hematocrit 45.5 % (36.0-47.0) Mean Corpuscular Volume 84 fL (79-100) Mean Corpuscular Hemoglobin 28 pg (25-35) Mean Corpuscular Hemoglobin Concent 34 g/dL (31-37) Red Cell Distribution Width 13.8 % (11.5-14.5) Platelet Count 203 x10^3/uL (140-400) Neutrophils (%) (Auto) 89 % (31-73) Lymphocytes (%) (Auto) 10 % (24-48) Monocytes (%) (Auto) 1 % (0-9) Eosinophils (%) (Auto) 0 % (0-3) Basophils (%) (Auto) 0 % (0-3) Neutrophils # (Auto) 11.5 x10^3/uL (1.8-7.7) Lymphocytes # (Auto) 1.3 x10^3/uL (1.0-4.8) Monocytes # (Auto) 0.1 x10^3/uL (0.0-1.1) Eosinophils # (Auto) 0.0 x10^3/uL (0.0-0.7) Basophils # (Auto) 0.0 x10^3/uL (0.0-0.2) Segmented Neutrophils % 90 % (35-66) Lymphocytes % 10 % (24-48) Platelet Estimate Adequate (ADEQUATE) Sodium Level 129 mmol/L (136-145) Potassium Level 4.6 mmol/L (3.5-5.1) Chloride Level 97 mmol/L (98-107) Carbon Dioxide Level 18 mmol/L (21-32) Anion Gap 14 (6-14) Blood Urea Nitrogen 12 mg/dL (7-20) Creatinine 1.2 mg/dL (0.6-1.0) Estimated GFR (Cockcroft-Gault) 60.2 BUN/Creatinine Ratio 10 (6-20) Glucose Level 522 mg/dL (70-99) Calcium Level 8.9 mg/dL (8.5-10.1) Total Bilirubin 0.4 mg/dL (0.2-1.0) Aspartate Amino Transf (AST/SGOT) 10 U/L (15-37) Alanine Aminotransferase (ALT/SGPT) 16 U/L (14-59) Alkaline Phosphatase 105 U/L (46-116) Total Protein 7.7 g/dL (6.4-8.2) Albumin 3.4 g/dL (3.4-5.0) Albumin/Globulin Ratio 0.8 (1.0-1.7) O2 Saturation 96 % (92-99) Arterial Blood pH 7.41 (7.35-7.45) Arterial Blood pCO2 at Patient Temp 27 mmHg (35-46) Arterial Blood pO2 at Patient Temp 88 mmHg (75-108) Arterial Blood HCO3 17 mmol/L (21-28) Arterial Blood Base Excess -6 mmol/L (-3-3) FiO2 21 Glucose (Fingerstick) 389 mg/dL (70-99) 326 mg/dL (70-99) Test 12/09/19 17:18 12/09/19 21:11 12/10/19 08:19 12/10/19 09:40 Glucose (Fingerstick) 394 mg/dL (70-99) 376 mg/dL (70-99) 297 mg/dL (70-99) White Blood Count 13.4 x10^3/uL (4.0-11.0) Red Blood Count 5.15 x10^6/uL (3.50-5.40) Hemoglobin 14.7 g/dL (12.0-15.5) Hematocrit 43.2 % (36.0-47.0) Mean Corpuscular Volume 84 fL (79-100) Mean Corpuscular Hemoglobin 29 pg (25-35) Mean Corpuscular Hemoglobin Concent 34 g/dL (31-37) Red Cell Distribution Width 13.8 % (11.5-14.5) Platelet Count 197 x10^3/uL (140-400) Neutrophils (%) (Auto) 89 % (31-73) Lymphocytes (%) (Auto) 8 % (24-48) Monocytes (%) (Auto) 2 % (0-9) Eosinophils (%) (Auto) 0 % (0-3) Basophils (%) (Auto) 0 % (0-3) Neutrophils # (Auto) 12.0 x10^3/uL (1.8-7.7) Lymphocytes # (Auto) 1.1 x10^3/uL (1.0-4.8) Monocytes # (Auto) 0.3 x10^3/uL (0.0-1.1) Eosinophils # (Auto) 0.0 x10^3/uL (0.0-0.7) Basophils # (Auto) 0.0 x10^3/uL (0.0-0.2) Erythrocyte Sedimentation Rate 8 (0-25) Sodium Level 136 mmol/L (136-145) Potassium Level 4.0 mmol/L (3.5-5.1) Chloride Level 102 mmol/L (98-107) Carbon Dioxide Level 21 mmol/L (21-32) Anion Gap 13 (6-14) Blood Urea Nitrogen 12 mg/dL (7-20) Creatinine 0.7 mg/dL (0.6-1.0) Estimated GFR (Cockcroft-Gault) 112.1 BUN/Creatinine Ratio 17 (6-20) Glucose Level 305 mg/dL (70-99) Calcium Level 7.5 mg/dL (8.5-10.1) Total Bilirubin 0.8 mg/dL (0.2-1.0) Aspartate Amino Transf (AST/SGOT) 11 U/L (15-37) Alanine Aminotransferase (ALT/SGPT) 14 U/L (14-59) Alkaline Phosphatase 70 U/L (46-116) C-Reactive Protein, Quantitative 19.2 mg/L (0-3.3) Total Protein 5.9 g/dL (6.4-8.2) Albumin 2.9 g/dL (3.4-5.0) Albumin/Globulin Ratio 1.0 (1.0-1.7) Test 12/10/19 12:22 Glucose (Fingerstick) 288 mg/dL (70-99) Laboratory Tests Test 12/09/19 17:18 12/09/19 21:11 12/10/19 08:19 12/10/19 09:40 Glucose (Fingerstick) 394 mg/dL (70-99) 376 mg/dL (70-99) 297 mg/dL (70-99) White Blood Count 13.4 x10^3/uL (4.0-11.0) Red Blood Count 5.15 x10^6/uL (3.50-5.40) Hemoglobin 14.7 g/dL (12.0-15.5) Hematocrit 43.2 % (36.0-47.0) Mean Corpuscular Volume 84 fL (79-100) Mean Corpuscular Hemoglobin 29 pg (25-35) Mean Corpuscular Hemoglobin Concent 34 g/dL (31-37) Red Cell Distribution Width 13.8 % (11.5-14.5) Platelet Count 197 x10^3/uL (140-400) Neutrophils (%) (Auto) 89 % (31-73) Lymphocytes (%) (Auto) 8 % (24-48) Monocytes (%) (Auto) 2 % (0-9) Eosinophils (%) (Auto) 0 % (0-3) Basophils (%) (Auto) 0 % (0-3) Neutrophils # (Auto) 12.0 x10^3/uL (1.8-7.7) Lymphocytes # (Auto) 1.1 x10^3/uL (1.0-4.8) Monocytes # (Auto) 0.3 x10^3/uL (0.0-1.1) Eosinophils # (Auto) 0.0 x10^3/uL (0.0-0.7) Basophils # (Auto) 0.0 x10^3/uL (0.0-0.2) Erythrocyte Sedimentation Rate 8 (0-25) Sodium Level 136 mmol/L (136-145) Potassium Level 4.0 mmol/L (3.5-5.1) Chloride Level 102 mmol/L (98-107) Carbon Dioxide Level 21 mmol/L (21-32) Anion Gap 13 (6-14) Blood Urea Nitrogen 12 mg/dL (7-20) Creatinine 0.7 mg/dL (0.6-1.0) Estimated GFR (Cockcroft-Gault) 112.1 BUN/Creatinine Ratio 17 (6-20) Glucose Level 305 mg/dL (70-99) Calcium Level 7.5 mg/dL (8.5-10.1) Total Bilirubin 0.8 mg/dL (0.2-1.0) Aspartate Amino Transf (AST/SGOT) 11 U/L (15-37) Alanine Aminotransferase (ALT/SGPT) 14 U/L (14-59) Alkaline Phosphatase 70 U/L (46-116) C-Reactive Protein, Quantitative 19.2 mg/L (0-3.3) Total Protein 5.9 g/dL (6.4-8.2) Albumin 2.9 g/dL (3.4-5.0) Albumin/Globulin Ratio 1.0 (1.0-1.7) Test 12/10/19 12:22 Glucose (Fingerstick) 288 mg/dL (70-99) Brief Hospital Course Ms. Ely is a 39 old female, admit for swelling, rash, s/p 8 days of PCN and flagyl, prolonged reaction, steroids, benadryl given, Discharge Information Condition at Discharge: Improved Follow Up: Weeks Disposition/Orders: D/C to Home Scheduled Dapagliflozin Propanediol (Farxiga) 10 Mg Tablet, 10 MG PO DAILY for diabetes, (Reported) Entered as Reported by: MONTY FROST on 12/09/19420 Last Taken: Unknown Dose on 12/08/19 Last Action: Converted on 12/09/19837 by LIEN FLOYD Diphenhydramine Hcl (Benadryl) 25 Mg Capsule, 25 MG PO TID, #15 Prescribed by: ANNE RODRIGUES APRN on 12/08/192001 Last Action: Continued on 12/09/19837 by LIEN FLOYD Epinephrine (Epipen 2-[place]) 0.3 Mg/0.3 Ml Auto.injct, 1 SYR IM ONCE for ANAPHYLAXIS for 1 Days, #1 Ref 0 Prescribed by: ANNE RODRIGUES APRN on 12/08/192003 Last Action: Converted on 12/09/19837 by LIEN FLOYD Estradiol (Estradiol) 1 Mg Tablet, 1 TAB PO DAILY for hormone replacement, #30 Ref 11 (Reported) Entered as Reported by: MONTY FROST on 12/09/19420 Last Taken: Unknown Dose on 12/08/19 Last Action: Continued on 12/09/19837 by LIEN FLOYD Famotidine (Pepcid) 20 Mg Tablet, 20 MG PO BID, #30 Prescribed by: ANNE RODRIGUES APRN on 12/08/192001 Last Action: Continued on 12/09/19837 by LIEN FLOYD Methylprednisolone (Medrol) 4 Mg Tab.ds.pk, 1 PKG PO UD, #1 Prescribed by: ANNE RODRIGUES APRN on 12/08/192001 Last Action: HELD on 12/09/19837 by LIEN FLOYD Valacyclovir Hcl (Valacyclovir) 1,000 Mg Tablet, 1 TAB PO DAILY for home med, #30 Ref 3 (Reported) Entered as Reported by: MONTY FROST on 12/09/19420 Last Taken: Unknown Dose on 12/08/19 Last Action: Converted on 12/09/19837 by LIEN FLOYD Scheduled PRN Metformin Hcl (Metformin Hcl Er) 750 Mg Tab.er.24h, 1 TAB PO BIDWMEALS PRN for diabetes for 30 Days, #60 Ref 0 (Reported) Entered as Reported by: MONTY FROST on 12/09/19420 Last Taken: Unknown Dose on 12/08/19 Last Action: HELD on 12/09/19837 by LIEN FLOYD Patient Instructions Patient Instructions face to face DC < 30 min LIEN FLOYD MD Dec 10, 2019 12:40
--- NOTE | 2019-12-10 14:24 | CONS ---
DATE OF CONSULTATION: 12/10/2019 REQUESTING PHYSICIAN: Dr. Avila. REASON FOR CONSULTATION: Allergic reaction. HISTORY OF PRESENT ILLNESS: This is a 39-year-old -[place] female who had dental scaling done, first half was 10/28 and then the patient had been on amoxicillin and Flagyl then, and second half was on 12/02 and with the same antibiotics. Monday, she woke up with the [place] swelling, itching, and rash. The patient subsequently was seen in the ER, was given steroid, Benadryl and discharged, and she returned with more problems and some even "throat swelling." The patient is comfortable right now. The patient denies any nausea, vomiting, diarrhea, headache or visual symptoms. Breathing is normal. The rash is still present. PAST MEDICAL HISTORY: The patient had , hysterectomy, diabetes. SOCIAL HISTORY: Negative for smoking, alcohol, or drug use. ALLERGIES: No known drug allergies from before. CURRENT MEDICATIONS: Reviewed. REVIEW OF SYSTEMS: As per HPI, all other systems reviewed and are negative. PHYSICAL EXAMINATION: GENERAL: Awake female, not in any distress. VITAL SIGNS: Stable, afebrile. HEENT: NAD. The patient appears swollen at least by the family's account, hard to say. NECK: Supple, no JVP, no lymphadenopathy. LUNGS: Clear. HEART: S1, S2 regular. ABDOMEN: Benign. EXTREMITIES: No edema or cyanosis. SKIN: The patient does have faint rash all over. There is no blistering. There is no mucous membrane involvement. NEUROLOGIC: The patient is alert, awake and appropriate. No focal neurologic deficit. LABORATORY DATA: White count is 12.9. BUN and creatinine is normal. Her blood sugar is 522. IMPRESSION: Allergic reaction to something very unlikely that this is from amoxicillin and Flagyl. Not only she had taken it before, but she has been taking it since October. The patient denies using anything new or different, although she has gotten numbing medications, she has gotten some mouth washes from the dentist, but denies any changes at home. RECOMMENDATIONS: We will get C4 complement levels. Continue the Benadryl, H1, H2, and steroids. Supportive care. Discussed with the parents and the patient family. I believe she eventually is going to need to see Allergy Immunology to do patch testing done. Thank you very much, Dr. Avila, for giving me the opportunity to participate in this patient's care. LINDSAY SLAUGHTER MD DR: MARCELO/carroll JOB#: [id number] / [id number] SAM
--- NOTE | 2019-12-10 15:47 | NUR ---
Discharge Note: [facility] [address] [place] [address] Discharge instructions and discharge home medications reviewed with Patient and a copy given. All questions have been answered and understanding verbalized. The following instructions and handouts were given: Drug allergy Discontinued IV line Patient discharged to home with self care via family
[2019-12-10] MEDS ORDERED: metFORMIN 500 MG TABLET PO SCH (17:00)
[2019-12-11] MEDS ORDERED: INSULIN GLARGINE SYRINGE. SQ SCH (08:00)
[2019-12-11] MEDS ORDERED: predniSONE 10 MG TABLET PO SCH (09:00)
== END 2019-12-10 15:48 | disposition home or self-care (01) | DRG 916 ==
LOC: ER 00:42 → ED HOLD 01:31 → 2 SOUTH 02:59
PROVIDERS: ADMIT Family Medicine; ATTEND Family Medicine
DX: T78.2XXA Anaphylactic shock, unspecified, initial encounter (principal); R65.10 Systemic inflammatory response syndrome (SIRS) of non-infectious origin without acute organ dysfunction; Z68.42 Body mass index [BMI] 45.0-49.9, adult; E11.65 Type 2 diabetes mellitus with hyperglycemia; E66.9 Obesity, unspecified; L29.9 Pruritus, unspecified; Z82.49 Family history of ischemic heart disease and other diseases of the circulatory system; Z83.3 Family history of diabetes mellitus; Z90.710 Acquired absence of both cervix and uterus
CPT/HCPCS: 36415; 36600; 80053; 82805; 82962; 83036; 85007; 85025; 85651; 86140; 86160; 90471; 90686; 96361; 96374; 96375; 99285; J1200; J1815; J2405; J2930; J3490; J7030; J7512; G0378; Q0163